=== PATIENT | male | born 1930 | race Caucasian/White ===

== ENCOUNTER → 2018-09-23 12:00 | Outpatient (CLI) | payer MEDICARE, BC ==
[2015-12-14 10:02] VITALS: BMI 29.2
--- NOTE | ~2018-09-23 | ST ---
PATIENT:BRAYAN GARDNER JR MEDICAL RECORD: [id number] SEX: M LOCATION:[facility] ORDER #: ADMISSION DATE: 09/23/18 AGE OF PATIENT: 87 REFERRING PHYSICIAN: INTERPRETING PHYSICIAN: KEYSHAWN PEREZ MD DATE OF SERVICE: 09/23/2018 PROCEDURE: Nuclear stress test. INDICATION: Angina, coronary artery disease, shortness of breath, hyperlipidemia, it was pharmacologic. The patient was exercised on standard Lexiscan protocol with 33 mCi of sestamibi injected at peak stress, 11 mCi were used previously for rest images. FINDINGS: Gated SPECT reveals a dilated cardiomyopathy, ejection fraction 23% with decreased thickening and brightening throughout the inferior segments. SPECT imaging Cardiolite was used as myocardial perfusion agent. There was a fixed perfusion defect inferiorly compatible with previous inferior myocardial infarction. This includes the basal, mid, apical inferior segments. There is reversibility anteriorly and laterally, this includes the basal, mid, apical anterior segments, apical lateral, mid lateral, and basal lateral segments. The degree of reversibility is moderate. The amount of myocardial involved is large. OVERALL IMPRESSION: This is a markedly abnormal nuclear stress test, fixed perfusion defect inferiorly, reversible ischemia anteriorly and laterally suggestive of multivessel coronary artery disease with an ischemic cardiomyopathy. I would suggest followup with cardiac catheterization for further evaluation. TRANSINT:[id number] Voice Confirmation ID: [id number] DOCUMENT ID: [id number] KEYSHAWN PEREZ MD at 1228 CC: RICHMOND ZHAO [id number] DICTATION DATE: 09/24/18 1241 TOP STITCHER: 09/25/18 0800 DEP CLI 09/23/18 [place] [id number] [place] [address]
[~2018-09-23 12:00] MED LIST: ASPIRIN EC325 M1 PO; BAYER CHEWABLE81 MG PO; BYSTOLIC10 MG PO; CELEXA20 MG PO; CYCLOBENZAPRINE10 MG PO; DULCOLAX10 MG/SUPP RC; LASIX20 MG PO; LIPITOR20 MG PO; MARINOL2.5 MG PO; MEGACE40 MG PO; MIRALAX17 GM PO; NEXIUM20 MG PO; NIZORAL 2 % SH120 ML TOPICAL; PERIDEX480 ML MM; PLAVIX75 MG PO; PRAVACHOL20 MG PO; PRAVASTATIN SOD10 MG PO; REGLAN10 MG PO; RELAFEN500 MG PO; SYNTHROID125 MCG PO; ZYLOPRIM100 MG PO
== END | disposition home or self-care (01) ==
LOC: D.HCCARDIO 12:00
DX: I25.10 Atherosclerotic heart disease of native coronary artery without angina pectoris (principal)

== ENCOUNTER 2018-10-01 07:30 | Outpatient (CLI) | payer MEDICARE, BC ==
[~2018-10-01] VITALS: Ht 185.4 cm; Wt 90.0 kg
--- NOTE | ~2018-10-01 | OP ---
PATIENT NAME: BRAYAN GARDNER JR MEDICAL RECORD: [id number] :[birth year] LOCATION:D.CAT ADMISSION DATE: SURGEON: KEYSHAWN PEREZ MD DATE OF OPERATION: 10/01/2018 PROCEDURES: 1. PTCA stent vein graft to the left circumflex. 2. Intravascular ultrasound. 3. Left heart catheterization. 4. Selective coronary angiography. 5. Vein graft angiography. 6. SANTANA angiography. 7. Left ventriculogram. INDICATION: Angina and coronary artery disease. PROCEDURE IN DETAIL: After informed consent was obtained and after a detailed description of the risks, benefits as well as alternative therapies, the patient elected to proceed with angiogram and angioplasty. The right femoral area was prepped and draped in normal sterile fashion. Right femoral artery was cannulated via modified Seldinger technique with placement of 6-German sheath. All catheters exchanged through this sheath. FINDINGS: The left ventriculogram was performed in standard 30-degree MEDRANO view, reveals global hypokinesis, ejection fraction is 20%. SELECTIVE CORONARY ANGIOGRAPHY: 1. Left main is closed. 2. Right coronary artery is closed in the mid vessel. 3. SANTANA to the LAD is patent. Distal LAD is patent. 4. Vein graft to the circumflex in a skipped fashion to OM1 and OM2 is patent; however, intravascular ultrasound reveals 70+ percent stenosis proximally. 5. Vein graft to the right coronary artery is patent; however, there is greater than 70% stenosis proximally in this graft as well. PTCA STENT OF THE VEIN GRAFT TO LEFT CIRCUMFLEX: The stent used was a 4.0 x 15 mm Integrity. Result was 0% residual stenosis. OVERALL IMPRESSION: Successful percutaneous transluminal coronary angioplasty stent of the vein graft to the left circumflex going from 70% initial stenosis to 0% residual. PLAN: PTCA stent of the vein graft to the RCA in the near future. TRANSINT:[id number] Voice Confirmation ID: [id number] DOCUMENT ID: [id number] KEYSHAWN PEREZ MD at 1456 CC: [id number] DICTATION DATE: 10/01/18 0943 EDGER MACHINE SETTER: 10/01/18 1153 DEP CLI 10/01/18 [place] [address]
--- NOTE | ~2018-10-01 | HEMODYNAMI ---
PATIENT:BRAYAN GARDNER JR MEDICAL RECORD: [id number] : [birth year] LOCATION:ABILIO ADMISSION DATE: 10/01/18 Generatedon:10/01/20189:45 Patient name: BRAYAN GARDNER Patient #: [id number] SSN: : [id number] Date of study: 10/01/2018 Page: Of Hemodynamic Procedure Report Patient Data Patient Demographics Procedure consent was obtained First Name: BRAYAN Gender: Male Last Name: KENDRA Suffix: [facility] Initial: Enmanuel : 1930 Patient #: [id number] Age: 87 year(s) Race: Unknown Additional ID: [id number] Contact details Address: [address] [address] State: [place] City: [place] Zip code: [address] Admission Admission Data Admission Date: 10/01/2018 Admission Time: 7:30 Weight (lbs.): 198.42 Weight (kg.): 90 Lab Results Lab Result Date: 10/01/2018 Lab Result Time: 0:00 Biochemistry Name Units Result Min Max BUN mg/dl 21 --(----)-* 7 18 Creatinine mg/dl 1.5 --(----)-* 0.6 1.3 CBC Name Units Result Min Max Hematocrit % 28.2 *-(----)-- 42 54 Hemoglobin g/dl 9.4 *-(----)-- 13.5 17.5 Platelets 10^3/l 141 --(*---)-- 130 400 Procedure Procedure Types Cath Procedure Diagnostic Procedure [facility] w/Coronaries w/Grafts FFR/IVUS Intra-Coronary IVUS Initial PCI Procedure AMI/SVG/EMPLOYEE ADVISER PTCA or Stent SVG-BMS/TERE Initial Procedure Description Procedure Date Procedure Date: 10/01/2018 Procedure Start Time: 9:23 Procedure End Time: 9:45 Procedure Staff Name Function Tutu Jimenez MD Performing Physician Twan Nick RN Economics Consultant Monica New RT Monitor Kulwant Khan RN Nurse Sunday Wynn RT Scrub Procedure Data Cath Procedure Fluoroscopy Diagnostic fluoroscopy Total fluoroscopy Time: 7.1 time: 7.1 min min Diagnostic fluoroscopy Total fluoroscopy dose: 386 dose: 386 mGy mGy Contrast Material Contrast Material Type Amount (ml) Isovue 300 156 Entry Location Entry Primary Successful Side Size Upsize Upsize Entry Closure Succes sful Closure Location (Fr) 1 (Fr) 2 (Fr) Remarks Device Remarks Femoral Right 5 Fr 6 Fr Exoseal artery Short Estimated blood loss: 10 ml Diagnostic catheters Device Type Used For End Catheter Placement MULTIPACK Pigtail 5 Fr Procedure catheter MULTIPACK JL 4.0 5Fr Procedure catheter MULTIPACK 3DRC 5Fr Procedure catheter DIAGNOSTIC AR2 MOD 5 Fr Procedure catheter ([id number]) Procedure Complications No complications Procedure Medications Medication Administration Route Dosage 0.9% NaCl I.V. 100 ml/hr Oxygen etCO2 Nasal cannula 2 l/min Heparin Flush Bag added to field 2 bags (1000units/500ml NS) Lidocaine 2% added to field 20 Versed I.V. 1 mg Fentanyl I.V. 50 mcg Versed I.V. 1 mg Fentanyl I.V. 50 mcg Heparin Bolus I.V. 4000 units Hemodynamics Rest HGB: 9.4 (g/dl) Heart Rate: 82 (bpm) Snapshots Pre Cath Intra NCS Post Cath Vital Signs Time Heart Resp SPO2 etCO2 NIBP (mmHg) Rhythm Pain Sedation Rate (ipm) (%) (mmHg) Status Level (bpm) 9:07:14 95 25 97 0 145/87(119) NSR 0 (11) 10(A) , No pain 9:11:24 81 21 100 25.4 136/87(119) NSR 0 (11) 10(A) , No pain 9:15:38 82 11 96 0 133/81(117) NSR 0 (11) 10(A) , No pain 9:19:50 83 14 96 26.1 127/84(112) NSR 0 (11) 10(A) , No pain 9:24:02 80 14 97 23.1 129/78(114) NSR 0 (11) 10(A) , No pain 9:28:14 81 12 97 11.2 123/80(111) NSR 0 (11) 10(A) , No pain 9:32:24 83 13 98 11.9 130/78(118) NSR 0 (11) 9(A) , No pain 9:36:36 85 14 93 11.2 124/81(106) NSR 0 (11) 9(A) , No pain 9:40:44 86 15 97 23.2 126/83(104) NSR 0 (11) 10(A) , No pain 9:44:54 85 11 97 24.7 133/79(114) NSR 0 (11) 10(A) , No pain Medications Time Medication Route Dose Verified Delivered Reason Notes Effectiveness by by 9:10:26 0.9% NaCl I.V. 100 Kulwant Kulwant Per physician ml/hr Bill Khan RN RN 9:10:37 Oxygen etCO2 2 Kulwant Kulwant Per physician Nasal l/min Bill Khan cannula RN RN 9:10:47 Heparin Flush added 2 Kulwant Kulwant used for Bag to bags Bill Khan procedure (1000units/500ml RN RN NS) 9:10:57 Lidocaine 2% added 20ml Kulwant Kulwant for local to vial Bill Khan anesthetic RN RN 9:20:31 Versed I.V. 1 mg Kulwant Kulwant for sedation Bill Khan RN RN 9:20:39 Fentanyl I.V. 50 Kulwant Kulwant for sedation mcg Bill Khan RN RN 9:25:07 Versed I.V. 1 mg Kulwant Kulwant for sedation Bill Khan RN RN 9:25:13 Fentanyl I.V. 50 Kulwant Kulwant for sedation mcg Bill Khan RN RN 9:34:07 Heparin Bolus I.V. 4000 Kulwant Kulwant for units Bill Khan anticoagulation RN data control clerk Log Time Note 8:45:21 Twan Nick RN sent for patient. Start room use. 8:58:22 Time tracking: Regular hours (M-F 7:00 - 5:00) 8:58:26 Plan of Care:Hemodynamics will remain stable., Cardiac rhythm will remain stable., Comfort level will be maintained., Respiratory function will remain adequate., Patient/ family verbilizes understanding of procedure., Procedure tolerated without complication., Recovers from procedure without complications.. 9:01:19 Patient received from Pre/Post Procedure Room to [facility] 3 Alert and oriented. Tansferred to table in Supine position. 9:01:21 Warm blankets applied, and horace hugger turned on for patient comfort. 9::21 Correct patient and procedure confirmed by team. 9::23 Signed procedure consent form obtained from patient. 9::24 ECG and BP/O2 sat monitors applied to patient. 9:01:24 Full Disclosure recording started 9:06:06 Vital chart was started 9:08:39 Baseline sample Acquired. 9:08:44 Rhythm: sinus rhythm 9:09:04 H&P Date Dictated: 09/11/2018 Within 30 days and on chart., H&P Addendum completed by physician on day of procedure. (MUST COMPLETE FOR ALL OUTPATIENTS). 9:09:05 Pre-procedure instructions explained to patient. 9:09:05 Pre-op teaching completed and patient verbalized understanding. 9:09:07 Family in patients room. 9:09:09 Patient NPO since Midnight. 9:09:10 Is the patient allergic to Iodine/contrast media? No. 9:09:11 Is patient on blood thinner?Yes 9:09:14 ACC The patient was administered the following blood thiners within the last 24 hours: ACCPlavix 9:09:16 Patient diabetic? No. 9:09:19 Previous problem with sedation/anesthesia? No ? 9:09:20 Snore? Yes 9:09:21 Sleep apnea? No 9:09:22 Deviated septum? No 9:09:22 Opens mouth fully? Yes 9:09:23 Sticks out tongue? Yes 9:09:25 Airway obstruction? No ? 9:09:26 Dentures? No ? 9:09:33 Pre procedure: right dorsailis pedis pulse 1+ Palpable, but thready & weak; easily obliterated 9:09:37 Patient pain scale 0/10 ?. 9:09:44 IV patent on arrival in left forearm with 0.9% NaCl at KVO. 9:09:46 Lab results completed and on chart. 9:09:49 Right groin area was prepped with chlora-prep and draped in sterile fashion 9:09:49 Alarms reviewed by R. N. 9:09:50 Sharps counted by scrub and verified by R.N. 9:09:52 Use device set Femoral Dx 9:09:54 Tegaderm 4 x 4 (1626W) opened to sterile field. 9:09:54 ACIST Manifold (37636) opened to sterile field. 9:09:55 ACIST Hand Control (50780) opened to sterile field. 9:09:56 ACIST Syringe (86811) opened to sterile field. 9:09:57 Bag Decanter (2002S) opened to sterile field. 9:09:57 Medline Cath Pack ([id number]) opened to sterile field. 9:09:59 SHEATH 5FR [place] (RIJ503) opened to sterile field. 9:09:59 DIAGNOSTIC Multipack 5Fr catheter set (VH3183) opened to sterile field. 9:10:01 DIAGNOSTIC WIRE .035 260cm J wire (347569) opened to sterile field. 9:10:26 0.9% NaCl 100 ml/hr I.V. was administered by Kulwant Khan RN; Per physician; 9:10:37 Oxygen 2 l/min etCO2 Nasal cannula was administered by Kulwant Khan RN; Per physician; 9:10:47 Heparin Flush Bag (1000units/500ml NS) 2 bags added to field was administered by Kulwant Khan RN; used for procedure; 9:10:57 Lidocaine 2% 20ml vial added to field was administered by Kulwant Khan RN; for local anesthetic; 9:17:17 Patient Weight : 198.42 lbs 9:18:05 Lab Result : Hemoglobin 9.4 g/dl 9:18:05 Lab Result : Creatinine 1.5 mg/dl 9:18:05 Lab Result : BUN 21 mg/dl 9:18:05 Lab Result : Hematocrit 28.2 % 9:18:05 Lab Result : Platelets 141 10^3/l 9:20:06 --------ALL STOP TIME OUT------ 9:20:07 Final Timeout: patient, procedure, and site verified with staff and physician. All members of the team are in agreement. 9:20:08 Right groin site verified by team. 9:20:11 Physical assessment completed. ASA score P 2 - A patient with mild systemic disease as per Tutu Jimenez MD. 9:20:14 Sedation plan: IV Moderate Sedation Medication:Versed, Fentanyl 9:20:25 Zero performed for pressure channel P1 9:20:31 Versed 1 mg I.V. was administered by Kulwant Khan RN; for sedation; 9::39 Fentanyl 50 mcg I.V. was administered by Kulwant Khan RN; for sedation; 9::18 Procedure started. 9:23:21 Local anesthetic to right femoral artery with Lidocaine 2% by Tutu Jimenez MD.INITIAL ACCESS ONLY 9:24:19 A 5 Fr sheath was inserted into the Right Femoral artery 9:24:25 A MULTIPACK Pigtail 5 Fr catheter was advanced over the wire and used for Procedure. 9:24:49 LV angiography performed. 9:24:50 LV gram done using MEDRANO 9:24:58 EF : 20 % 9:25:02 Injector settings: Ml/sec: 10, Volume: 20, 9:25:04 Catheter removed. 9:25:07 Versed 1 mg I.V. was administered by Kulwant Khan RN; for sedation; 9::08 A MULTIPACK JL 4.0 5Fr catheter was advanced over the wire and used for Procedure. 9:25:13 Fentanyl 50 mcg I.V. was administered by Kulwant Khan RN; for sedation; 9::58 LCA closed. 9:26:01 Catheter removed. 9:26:07 A MULTIPACK 3DRC 5Fr catheter was advanced over the wire and used for Procedure. 9:26:56 SANTANA to LAD angiography performed. 9:27:42 RCA angiography performed. 9:27:52 Catheter removed. 9:27:58 A DIAGNOSTIC AR2 MOD 5 Fr catheter ([id number]) was advanced over the wire and used for Procedure. 9:29:20 SVG to OM angiography performed. 9:29:42 Skip graft to OM 2. 9:29:46 Use device set TAU PCI 9:29:47 SHEATH 6FR [place] (KCR188) opened to sterile field. 9:29:51 CHOICE PT Extra Support 182cm wire ([id number]) opened to sterile field. 9:29:55 INFLATOR Merit BasixCompak (AO8829) opened to sterile field. 9:31:13 SVG to RCA angiography performed. 9:32:55 Catheter removed. 9:33:05 GUIDE 6FR AR 2.0 catheter ([id number]) opened to sterile field. 9:33:14 Dearing [place] IVUS Catheter (56962M) opened to sterile field. 9:33:33 Sheath upsized to a 6 Fr Short. 9:33:52 6 Fr AR 2 guide catheter was inserted over the wire 9:33:57 CPTXS wire advanced. 9:34:07 Heparin Bolus 4000 units I.V. was administered by Kulwant Khan RN; for anticoagulation; 9:34:17 Wire advanced across lesion. 9:34:24 IVUS catheter advanced over wire. 9:35:09 IVUS pass to SVG Circ lesion performed. 9:37:46 IVUS catheter removed over wire. 9:38:05 Place stent Inflation Number: 1 A INTEGRITY RX 4.0 x 15 stent ([id number]) was prepped and advanced across the Aorta Left -> 1st Ob Carol. The stent was deployed at 17 MATTI for 0:10 (min:sec). 9:39:50 EXOSEAL 6Fr (EX600) opened to sterile field. 9:39:55 Stent catheter was removed intact over wire. 9:39:56 Wire removed. 9:39:56 Guide catheter removed. 9:40:09 Sheath removed intact; hemostasis achieved with Exoseal to the Right Femoral artery. 9:40:49 Procedure ended.(Physican Out) 9:43:35 Fluoroscopy time 07.10 minutes. 9:43:39 Fluoroscopy dose: 386 mGy 9:43:39 Flurop Dose total: 386 9:43:42 Contrast amount:Isovue 300 156ml. 9:43:44 Sharps counted by scrub and verified by R.N. 9:43:45 Insertion/operative site no bleeding no hematoma. 9:43:48 Post-op/insertion site Right Femoral artery dressed using a 4 x 4 and Tegaderm. 9:43:49 Post Procedure Pulses reassessed and unchanged 9:43:51 Post-procedure physical assessment completed. ASA score P 2 - A patient with mild systemic disease as per Tutu Jimenez MD. 9:43:54 Post procedure rhythm: unchanged. 9:43:57 Estimated blood loss: 10 ml 9:43:59 Post procedure instruction explained to patient.Patient verbalizes understanding. 9:43:59 Patient needs reinforcement of post procedure teaching. 9:44:11 Procedure type changed to Cath procedure, Diagnostic procedure, LHC, LHC w/Coronaries w/Grafts, FFR/IVUS, Intra-Coronary IVUS Initial, PCI procedure, AMI/SVG/EMPLOYEE ADVISER PTCA or Stent, SVG-BMS/TERE Initial 9:44:12 Procedure and supply charges have been captured, reviewed, submitted and are correct. 9:44:15 Procedure Complication : No complications 9:45:03 Vital chart was stopped 9:45:04 See physician's report for complete and final results. 9:45:05 Report given to Pre/Post Procedure Room. 9:45:07 Patient transfered to Pre/Post Procedure Room with Stretcher. 9:45:08 Procedure ended. 9:45:08 Full Disclosure recording stopped 9:45:13 End room use (Document Last) Intervention Summary Intervention Notes Time ActionType Lesion and Equipment Action# Pressure Duration Attributes Used 9:38:05 Place stent Aorta Left INTEGRITY RX 1 17 00:10 -> 1st Ob 4.0 x 15 Carol stent ([id number]) Device Usage Item Name Manufacture Quantity Catalog Number Hospital Part Current Mini mal Lot# / Charge Number Stock Stock Serial# Code Tegaderm 4 x 3M 1 1626W 163332 771528 [id number] 5 4 (1626W) ACIST Acist 1 84878 662947 349415 327477 5 Manifold Medical (83893) Systems Inc ACIST Hand Acist 1 51947 276586 706204 211697 5 Control Medical (11497) Systems Inc ACIST Acist 1 39524 383567 335439 202361 20 Syringe Medical (85193) Systems Inc Bag Decanter Microtek 1 2002S 160355 50023 032053 5 (2001S) Medical Inc. Medline Cath Medline 1 [id number] 630730 67070 508738 5 Pack ([id number]) SHEATH 5FR Terumo 1 GHF420 634305 514298 083561 5 [place] (YHJ345) DIAGNOSTIC Cardinal 1 KX9088 563909 88386 204852 30 Multipack Health 5Fr catheter set (ZH7598) DIAGNOSTIC St Cristian 1 787482 174618 769811 001827 30 WIRE .035 260cm J wire (126122) MULTIPACK Cardinal 1 582957 5 Pigtail 5 Fr Health catheter MULTIPACK JL Cardinal 1 315463 5 4.0 5Fr Health catheter MULTIPACK Cardinal 1 319579 5 3DRC 5Fr Health catheter DIAGNOSTIC Cardinal 1 [id number] 929617 399533 221941 20 AR2 MOD 5 Fr Health catheter (840067V) SHEATH 6FR Terumo 1 QCE147 879634 054607 294062 40 [place] (ETZ367) CHOICE PT [place] 1 [id number] 706659 987995 871114 5 Extra Scientific Support 182cm wire ([id number]) INFLATOR Merit 1 KV1860 854172 989928 423262 15 [place] Medical BasixCompak (NR4252) GUIDE 6FR AR Medtronic 1 [id number] 519483 31758 710427 1 2.0 catheter (QM4CP69) Dearing Dearing 1 20835X 413773 869905 803083 8 [place] IVUS Catheter (50537Y) INTEGRITY RX Medtronic 1 [id number] 403553 251913 500971 5 [id number] 4.0 x 15 stent ([id number]) EXOSEAL 6Fr Cardinal 1 EX600 713087 035092 011863 10 (EX600) Health Signature Audit [place] Stage Time Signature Unsigned Intra-Procedure 10/01/2018 Wynn 9:45:25 AM RT(R) Signatures Monitor : Monica New Signature : RT Date : Time : [address] [place] [address]
[2018-10-01 08:01] VITALS: BP 127/68; Ht 185.4 cm; Wt 90.0 kg
[2018-10-01 08:11] LABS: BASOPHILS 0.5 % (0-2); EOSINOPHILS 2.7 % (0-7); HEMATOCRIT 28.2 % (42.0-54.0); HEMOGLOBIN 9.4 g/dL (13.5-17.5); LYMPHOCYTES 40.1 % (15-50); MCH 36.9 pg (26.0-34.0); MCHC 33.3 g/dL (31.0-37.0); MCV 110.6 fL (80.0-100.0); MEAN PLATELET VOLUME 10.1 fL (7.4-10.4); MONOCYTES 2.3 % (2-11); NEUTROPHILS 54.4 % (40-80); RBC 2.55 10x6/uL (4.20-6.10); RDW 14.2 % (11.5-14.5); WBC 2.2 10x3/uL (4.8-10.8)
[2018-10-01] MEDS ORDERED: ZYLOPRIM100 MG PO (08:11)
[2018-10-01] MEDS ORDERED: REGLAN10 MG PO (08:12)
[2018-10-01] MEDS ORDERED: NEXIUM20 MG PO (08:14)
[2018-10-01 08:17] LABS: PLATELET COUNT 141 10x3/uL (130-400)
[2018-10-01 08:24] LABS: ANION GAP 15.3 mmol/L (8-16); CALCIUM 8.9 mg/dL (8.5-10.1); CARBON DIOXIDE 23.9 mmol/L (21.0-32.0); CREATININE - SERUM 1.5 mg/dL (0.6-1.3); POTASSIUM - SERUM 4.2 mmol/L (3.5-5.1)
[2018-10-01] MEDS ORDERED: BAYER CHEWABLE81 MG PO (09:51)
== END 2018-10-01 13:50 | disposition home or self-care (01) ==
LOC: D.CATH 07:30
PROVIDERS: Internal Medicine Interventional Cardiology
DX: I25.119 Atherosclerotic heart disease of native coronary artery with unspecified angina pectoris (principal); I25.719 Atherosclerosis of autologous vein coronary artery bypass graft(s) with unspecified angina pectoris; Z01.812 Encounter for preprocedural laboratory examination

== ENCOUNTER 2018-10-08 07:29 | Outpatient (CLI) | payer MEDICARE, BC ==
[~2018-10-08] VITALS: Ht 185.4 cm; Wt 90.0 kg
--- NOTE | ~2018-10-08 | HEMODYNAMI ---
PATIENT:BRAYAN GARDNER JR MEDICAL RECORD: [id number] : [birth year] LOCATION:DRE ADMISSION DATE: 10/08/18 Generatedon:10/08/201810:16 Patient name: BRAYAN GARDNER Patient #: [id number] SSN: : 1930 Date of study: 10/08/2018 Page: Of Hemodynamic Procedure Report Patient Data Patient Demographics Procedure consent was obtained First Name: BRAYAN Gender: Male Last Name: KENDRA Suffix: [facility] Initial: Enmanuel : 1930 Patient #: [id number] Age: 87 year(s) Race: Unknown Additional ID: [id number] Contact details Address: [facility] [address] State: [place] City: [place] Zip code: [address] Past Medical History Allergies Allergen Reaction Date Comments Reported Other allergy 10/08/2018 Statins, Admission Admission Data Admission Date: 10/08/2018 Admission Time: 7:29 Admit Source: Other Lab Results Lab Result Date: 10/08/2018 Lab Result Time: 0:00 Biochemistry Name Units Result Min Max BUN mg/dl 22 --(----)-* 7 18 Creatinine mg/dl 1.5 --(----)-* 0.6 1.3 CBC Name Units Result Min Max Hemoglobin g/dl 9.3 *-(----)-- 13.5 17.5 Procedure Procedure Types Cath Procedure PCI Procedure AMI/SVG/BREAD ROOM HAND PTCA or Stent SVG-BMS/TERE Initial Procedure Description Procedure Date Procedure Date: 10/08/2018 Procedure Start Time: 10:01 Procedure End Time: 10:13 Procedure Staff Name Function Tutu Jimenez MD Performing Physician Familia Marie RT Monitor David Bourne RT Scrub Luz Maria Francis RN Nurse Procedure Data Cath Procedure Fluoroscopy Diagnostic fluoroscopy Total fluoroscopy Time: 3.6 time: 3.6 min min Diagnostic fluoroscopy Total fluoroscopy dose: 163 dose: 163 mGy mGy Contrast Material Contrast Material Type Amount (ml) Isovue 300 53 Entry Location Entry Primary Successful Side Size Upsize 1 Upsize Entry Closure Ivory ccessful Closure Location (Fr) (Fr) 2 (Fr) Remarks Device Remarks Femoral Right 6 Fr 6 Fr 6 Fr Exoseal artery Short Mid-Length Short Estimated blood loss: 10 ml Procedure Complications No complications Procedure Medications Medication Administration Route Dosage 0.9% NaCl I.V. 100 ml/hr Oxygen etCO2 Nasal cannula 2 l/min Lidocaine 2% added to field 20 Heparin Flush Bag added to field 2 bags (1000units/500ml NS) Versed I.V. 2 mg Fentanyl I.V. 50 mcg Heparin Bolus I.V. 4000 units Fentanyl I.V. 50 mcg Versed I.V. 1 mg Hemodynamics Rest Heart Rate: 84 (bpm) Snapshots Pre Cath Intra NCS Post Cath Vital Signs Time Heart Resp SPO2 etCO2 NIBP (mmHg) Rhythm Pain Sedation Rate (ipm) (%) (mmHg) Status Level (bpm) 9:45:23 83 18 100 25.6 136/88(125) NSR 0 (11) 10(A) , No pain 9:49:41 83 16 98 20.6 137/77(119) NSR 0 (11) 10(A) , No pain 9:53:55 86 12 97 21.1 133/85(108) NSR 0 (11) 10(A) , No pain 9:58:13 82 14 98 21 132/77(106) NSR 0 (11) 9(A) , No pain 10:02:29 85 21 99 23.7 134/83(111) NSR 0 (11) 10(A) , No pain 10:06:45 81 15 99 18 137/77(112) NSR 0 (11) 9(A) , No pain 10:10:57 84 24 98 13.5 136/83(113) NSR 0 (11) 10(A) , No pain Medications Time Medication Route Dose Verified Delivered Reason Notes Effectiveness by by 9:42:45 0.9% NaCl I.V. 100 Tutu Buchanana used for ml/hr Tony Francis technical support specialist 9:42:52 Oxygen etCO2 2 Tutu Buchanana used for Nasal l/min Tony Francis procedure cannula RN 9:42:58 Lidocaine 2% added 20ml Tutu Cam for local to vial Tony Jimenez MD anesthetic field 9:43:05 Heparin Flush added 2 Tutu Tutu used for Bag to bags Tony Jimenez MD procedure (1000units/500ml field NS) 9:57:30 Versed I.V. 2 mg Tutu Luz Maria for sedation Tony Francis RN 9:57:51 Fentanyl I.V. 50 Tutu Luz Maria for sedation mcg Tony Francis RN 10:00:16 Heparin Bolus I.V. 4000 Tutu Luz Maria for verif ied units Tony Francis anticoagulation with Dr. LUKE Jimenez 10:03:21 Fentanyl I.V. 50 Tutu Luz Maria for sedation mcg Tony Francis RN 10:03:25 Versed I.V. 1 mg Tutu Luz Maria for sedation Tony Francis RN Procedure Log Time Note 9:30:48 Informed consent obtained and on chart 9:30:51 Admit Source: Other 9:32:34 Diagnostic Cath status Elective 9:32:37 David Suit RT(R) sent for patient. Start room use. 9:32:38 Time tracking: Regular hours (M-F 7:00 - 5:00) 9:32:41 Plan of Care:Hemodynamics will remain stable., Cardiac rhythm will remain stable., Comfort level will be maintained., Respiratory function will remain adequate., Patient/ family verbilizes understanding of procedure., Procedure tolerated without complication., Recovers from procedure without complications.. 9:32:50 H&P Date Dictated: 10/08/2018 Within 30 days and on chart., H&P Addendum completed by physician on day of procedure. (MUST COMPLETE FOR ALL OUTPATIENTS). 9:36:49 Patient received from Pre/Post Procedure Room to CCL 1 Alert and oriented. Tansferred to table in Supine position. 9:36:50 Warm blankets applied, and horace hugger turned on for patient comfort. 9:36:51 Correct patient and procedure confirmed by team. 9:36:51 ECG and BP/O2 sat monitors applied to patient. 9:36:53 Pre-procedure instructions explained to patient. 9:36:53 Pre-op teaching completed and patient verbalized understanding. 9:36:54 Family in waiting room. 9:36:56 Patient NPO since Midnight. 9:37:09 Patient allergic to Other allergyStatins, 9:37:11 Is the patient allergic to Iodine/contrast media? No. 9:42:36 Vital chart was started 9:42:45 0.9% NaCl 100 ml/hr I.V. was administered by Luz Maria Francis RN; used for procedure; 9:42:52 Oxygen 2 l/min etCO2 Nasal cannula was administered by Luz Maria Francis RN; used for procedure; 9:42:58 Lidocaine 2% 20ml vial added to field was administered by Tutu Jimenez MD; for local anesthetic; 9:43:05 Heparin Flush Bag (1000units/500ml NS) 2 bags added to field was administered by Tutu Jimenez MD; used for procedure; 9:43:27 Lab Result : BUN 22 mg/dl 9:43:27 Lab Result : Creatinine 1.5 mg/dl 9:43:27 Lab Result : Hemoglobin 9.3 g/dl 9:43:32 Lab results completed and on chart. 9:44:25 Is patient on blood thinner?Yes 9:44:30 ACC The patient was administered the following blood thiners within the last 24 hours: ACCPlavix 9:44:31 Patient diabetic? No. 9:44:36 Previous problem with sedation/anesthesia? No ? 9:44:38 Snore? Yes 9:44:40 Sleep apnea? No 9:44:41 Deviated septum? No 9:44:42 Opens mouth fully? Yes 9:44:45 Sticks out tongue? Yes 9:44:47 Airway obstruction? No ? 9:44:49 Dentures? No ? 9:45:25 Pre procedure: right dorsailis pedis pulse 1+ Palpable, but thready & weak; easily obliterated 9:45:29 Patient pain scale 0/10 ?. 9:45:37 IV patent on arrival in left forearm with 0.9% NaCl at [facility]. 9:45:41 Right groin area was prepped with chlora-prep and draped in sterile fashion 9:45:42 Alarms reviewed by R. N. 9:45:43 Sharps counted by scrub and verified by R.N. 9:45:47 Use device set Femoral Dx 9:45:49 ACIST Syringe (03767) opened to sterile field. 9:45:50 Bag Decanter (2002S) opened to sterile field. 9:45:51 ACIST Hand Control (24124) opened to sterile field. 9:45:51 ACIST Manifold (87454) opened to sterile field. 9:45:53 Tegaderm 4 x 4 (1626W) opened to sterile field. 9:45:57 Medline Cath Pack ([id number]) opened to sterile field. 9:45:57 DIAGNOSTIC WIRE .035 260cm J wire (479326) opened to sterile field. 9:46:10 SHEATH 6FR [place] (FLL528) opened to sterile field. 9:46:14 CHOICE PT Extra Support 182cm wire ([id number]) opened to sterile field. 9:46:18 INFLATOR Merit BasixCompak (ZS5636) opened to sterile field. 9:55:22 Physician arrived 9:55:23 Final Timeout: patient, procedure, and site verified with staff and physician. All members of the team are in agreement. 9:55:26 Right groin site verified by team. 9:55:28 Physical assessment completed. ASA score P 2 - A patient with mild systemic disease as per Tutu Jimenez MD. 9:55:30 Sedation plan: IV Moderate Sedation Medication:Versed, Fentanyl 9:57:30 Versed 2 mg I.V. was administered by Luz Maria Francis RN; for sedation; 9:57:51 Fentanyl 50 mcg I.V. was administered by Luz Maria Francis RN; for sedation; 10:00:16 Heparin Bolus 4000 units I.V. was administered by Luz Maria Francis RN; for anticoagulation; verified with Dr. Jimenez 10:01:00 Procedure started. 10:01:00 Full Disclosure recording started 10:01:02 Local anesthetic to right femoral artery with Lidocaine 2% by Tutu Jimenez MD.INITIAL ACCESS ONLY 10:01:09 A 6 Fr Short sheath was inserted into the Right Femoral artery 10:01:55 Baseline sample Acquired. 10:02:01 Rhythm: sinus rhythm 10:03:08 Zero performed for pressure channel P1 10:03:11 Zero performed for pressure channel P1 10:03:21 Fentanyl 50 mcg I.V. was administered by Luz Maria Francis RN; for sedation; 10:03:25 Versed 1 mg I.V. was administered by Luz Maria Francis RN; for sedation; 10:03:26 GUIDE 6FR MB 1 SH catheter ([id number]) opened to sterile field. 10:03:35 6 Fr MB1 SH guide catheter was inserted over the wire 10:03:48 CHOICE PT ES wire advanced. 10:06:24 TIP WIRE BROKE OFF THROUGH SIDE HOLE OF GUIDE CATHETER. 10:06:25 Wire removed. damaged. 10:06:40 SHEATH 6FR ARROW 45cm (CL-67782) opened to sterile field. 10:06:43 CHOICE PT Extra Support 182cm wire ([id number]) opened to sterile field. 10:06:55 Guide catheter removed. 10:07:00 Sheath upsized to a 6 Fr Mid-Length. 10:07:57 6 Fr MB 1 SH guide catheter was inserted over the wire 10:08:04 CHOICE PT ES wire advanced. 10:08:07 Wire advanced across lesion. 10:09:39 Place stent Inflation Number: 1 A JOVANNA RX 3.5 x 38 stent ([id number]) was prepped and advanced across the Aorta Right -> Dist RCA. The stent was deployed at 21 MATTI for 0:10 (min:sec). 10:10:32 Stent catheter was removed intact over wire. 10:10:33 Wire removed. 10:10:33 Guide catheter removed. 10:10:40 EXOSEAL 6Fr (EX600) opened to sterile field. 10:11:18 Sheath upsized to a 6 Fr Short. 10:11:24 Sheath removed intact; hemostasis achieved with Exoseal to the Right Femoral artery. 10:11:28 Procedure ended.(Physican Out) 10:12:15 Fluoroscopy time 03.60 minutes. 10:12:19 Flurop Dose total: 163 10:12:19 Fluoroscopy dose: 163 mGy 10:12:23 Contrast amount:Isovue 300 53ml. 10:12:25 Sharps counted by scrub and verified by R.N. 10:12:25 Insertion/operative site no bleeding no hematoma. 10:12:28 Post-op/insertion site Right Femoral artery dressed using a 4 x 4 and Tegaderm. 10:12:32 Post right femoral artery:stable, soft, clean and dry 10:12:33 Post Procedure Pulses reassessed and unchanged 10:12:35 Post-procedure physical assessment completed. ASA score P 2 - A patient with mild systemic disease as per Tutu Jimenez MD. 10:12:37 Post procedure rhythm: unchanged. 10:12:39 Estimated blood loss: 10 ml 10:12:40 Post procedure instruction explained to patient.Patient verbalizes understanding. 10:12:41 Patient needs reinforcement of post procedure teaching. 10:13:00 Procedure and supply charges have been captured, reviewed, submitted and are correct. 10:13:02 Procedure Complication : No complications 10:13:04 Vital chart was stopped 10:13:04 See physician's report for complete and final results. 10:13:05 Report given to Pre/Post Procedure Room. 10:13:08 Patient transfered to Pre/Post Procedure Room with Stretcher. 10:13:10 Procedure ended. 10:13:10 Full Disclosure recording stopped 10:13:13 End room use (Document Last) Intervention Summary Intervention Notes Time ActionType Lesion and Equipment Used Action# Pressure Duration Attributes 10:09:39 Place stent Aorta Right JOVANNA RX 3.5 x 1 21 00:10 -> Dist RCA 38 stent ([id number]) Device Usage Item Name Manufacture Quantity Catalog Number Hospital Part Current M inimal Lot# / Charge Number Stock Stock Serial# Code ACIST Syringe Acist 1 21055 613154 191638 059761 2 0 (46854) Medical Systems Inc Bag Decanter Microtek 1 2001S 900248 74888 954808 5 (2001S) Medical Inc. ACIST Hand Acist 1 40459 899813 916351 482470 5 Control Medical (12002) Systems Inc ACIST Manifold Acist 1 93258 914011 252484 116513 5 (21106) Medical Systems Inc Tegaderm 4 x 4 3M 1 1626W 599949 523885 782202 5 (1626W) Medline Cath Medline 1 [id number] 581963 70922 488773 5 Pack ([id number]) DIAGNOSTIC [place] 1 549255 184229 512003 263242 3 0 WIRE .035 260cm J wire (958683) SHEATH 6FR Terumo 1 ALM244 514677 159057 582216 4 0 [place] (FMY123) CHOICE PT [place] 2 [id number] 422011 137585 687438 5 Extra Support Scientific 182cm wire ([id number]) INFLATOR Merit Merit 1 DL5081 221803 122900 780458 1 5 [facility] (GX9147) GUIDE 6FR MB 1 Medtronic 1 [id number] 702165 54791 962172 1 SH catheter ([id number]) SHEATH 6FR Teleflex 1 CL-48074 737856 661890 024023 5 ARROW 45cm (CL-92790) JOVANNA RX 3.5 x Medtronic 1 [id number] 894806 0900747 143726 5 [id number] 38 stent ([id number]) EXOSEAL 6Fr Cardinal 1 EX600 612779 696943 312999 1 0 (EX600) Health Signature Audit [place] Stage Time Signature Unsigned Intra-Procedure 10/08/2018 Familia Marie 10:16:05 AM RT(R) Signatures Monitor : Familia Marie RT Signature : Date : Time : [id number] [place] [address]
[2018-10-08 07:50] VITALS: BP 104/68; Ht 185.4 cm; Wt 90.0 kg
[2018-10-08 08:02] LABS: HEMOGLOBIN 9.3 g/dL (13.5-17.5); MCH 36.8 pg (26.0-34.0); MCHC 33.2 g/dL (31.0-37.0); MCV 110.7 fL (80.0-100.0); MEAN PLATELET VOLUME 9.6 fL (7.4-10.4); PLATELET COUNT 133 10x3/uL (130-400); RBC 2.53 10x6/uL (4.20-6.10); RDW 13.8 % (11.5-14.5); WBC 2.4 10x3/uL (4.8-10.8)
[2018-10-08 08:21] LABS: ANION GAP 14.9 mmol/L (8-16); CALCIUM 8.6 mg/dL (8.5-10.1); CARBON DIOXIDE 23.2 mmol/L (21.0-32.0); CREATININE - SERUM 1.5 mg/dL (0.6-1.3); POTASSIUM - SERUM 4.1 mmol/L (3.5-5.1)
[2018-10-08 08:30] LABS: EOSINOPHILS 2 % (0-7); LYMPHOCYTES 48 % (15-50); MONOCYTES 4 % (2-11); NEUTROPHILS 45 % (40-80); PLATELET ESTIMATE NORMAL
--- NOTE | 2018-10-08 10:45 | NUR ---
PATIENT RESTING, VSS ON 1L NASAL CANNULA. RIGHT GROIN DRESSING IS CDI, NO BLEEDING OR HEMATOMA NOTED. 2+ PEDAL PULSES. NO C/O PAIN,NUMBNESS, OR TINGLING.
--- NOTE | 2018-10-08 11:15 | NUR ---
PATIENT RESTING. VSS ON 1L NASAL CANNULA. RIGHT GROIN DRESSING IS CDI, NO BLEEDING OR HEMATOMA NOTED.
--- NOTE | 2018-10-08 11:30 | NUR ---
PATIENT RESTING, VSS ON 1L NASAL CANNULA. RIGHT GROIN DRESSING IS CDI, NO BLEEDING OR HEMATOMA NOTED.
--- NOTE | 2018-10-08 12:00 | NUR ---
PATIENT AWAKE, SIPPING WATER. RIGHT GROIN DRESSING IS CDI, NO BLEEDING OR HEMATOMA NOTED. VSS ON ROOM AIR. 2+ PEDAL PULSES. NO N/V.
--- NOTE | 2018-10-08 12:30 | NUR ---
ASSISTED PATIENT WITH URINAL. VSS ON ROOM AIR. RIGHT GROIN DRESSING IS CDI,NO BLEEDING OR HEMATOMA NOTED.
--- NOTE | 2018-10-08 13:00 | NUR ---
PATIENT AWAKE, VSS ON ROOM AIR. RIGHT GROIN DRESSING IS CDI, NO BLEEDING OR HEMATOMA NOTED.
--- NOTE | 2018-10-08 13:10 | NUR ---
PATIENT RESTING, VSS ON ROOM AIR. RIGHT TR BAND IN PLACE, NO BLEEDING OR HEMATOMA NOTED.
--- NOTE | 2018-10-08 13:30 | NUR ---
PATIENT EATING TURKEY SANDWICH AND GRAPES, HEAD OF BED ELEVATED TO 30 DEGRESS. RIGHT GROIN DRESSING IS CDI, NO BLEEDING OR HEMATOMA NOTED.
--- NOTE | 2018-10-08 14:00 | NUR ---
IV REMOVED AT THIS TIME. VSS ON ROOM AIR. RIGHT GROIN DRESSING IS CDI, NO BLEEDING OR HEMATOMA NOTED. EDUCATION REGARDING DISCHARGE AND MEDICATION GIVEN TO PATIENT AND FAMILY MEMBER AT THIS TIME, ALL QUESTIONS ANSWERED.
--- NOTE | 2018-10-08 14:10 | NUR ---
PATIENT TRANSPORTED VIA WHEELCHAIR TO CAR WITH DAUGHTER DRIVING. ALL BELONGINGS SENT WITH PATIENT.
--- NOTE | 2018-10-09 14:57 | HP ---
PATIENT: BRAYAN GARDNER JR MEDICAL RECORD: [id number] ACCOUNT: [id number] LOCATION:ABILIO : [birth year] ADMISSION DATE: 10/08/18 PCP: RICHMOND ZHAO MD HISTORY AND PHYSICAL EXAMINATION ADMITTING DIAGNOSES: 1. Angina. 2. Coronary artery disease. 3. Recent percutaneous transluminal coronary angioplasty stent vein graft to the circumflex with concomitant disease vein graft to right coronary artery. 4. Hypertension. 5. Hyperlipidemia. HISTORY OF PRESENT ILLNESS: Mr. Gardner presents with unstable anginal symptomatology, found to have 2-vessel disease of the vein graft to the circumflex and vein graft to the right, underwent successful PTCA stent of the vein graft to circumflex, is now brought back for PTCA stent of the vein graft to the RCA. PHYSICAL EXAMINATION: GENERAL APPEARANCE: Well-nourished, well-developed, appears stated age. Level of distress, comfortable. PSYCHIATRIC: Mental status, alert, normal affect. Orientation, oriented to time, place and person. EYES: Lids and conjunctiva, noninjected. No discharge, no pallor. ENT: Lips, teeth, gums, normal dentition. Oropharynx, no cyanosis, no pallor. NECK: Carotid arteries, bilateral normal upstroke, no bruits, no thrills. JUGULAR VEINS: No jugular venous pressure or distention. CERVICAL LYMPH NODES: Nontender, nonenlarged. THYROID: Not enlarged. Nontender. No nodules. LUNGS: Respiratory effort, unlabored. CHEST: Normal curvature. No thoracic deformity. No chest wall tenderness. Percussion, resonant. Auscultation, clear. No wheezes, no rales, no rhonchi. CARDIOVASCULAR: Precordial exam, nondisplaced. No heaves or pericardial thrills. Rate and rhythm, regular. Heart sounds, normal S1, normal S2. No S3, no gallop, no rub. Systolic murmur, not heard. Diastolic murmur, not heard. EXTREMITIES: No cyanosis, no edema. Peripheral pulses, full and equal in all extremities, except as noted. No bruits appreciated. ABDOMEN: Soft, nondistended. Normal aorta. No bruit. Nontender. No masses. Liver, nontender, no hepatomegaly. Spleen, nontender, no splenomegaly. MUSCULOSKELETAL: No joint tenderness. No joint swelling. No erythema. NEUROLOGICAL: Normal gait, normal strength, normal tone. SKIN: Warm and dry. OVERALL IMPRESSION: Anginal symptomatology. We will proceed with transcatheter revascularization of the vein graft to the right coronary artery. TRANSINT:[id number] Voice Confirmation ID: [id number] DOCUMENT ID: [id number] HISTORY AND PHYSICAL [id number] BRAYAN GARDNER JR, JEFFREY MD at 1457 CC: [id number] DICTATION DATE: 10/08/18 1016 ODD JOB WORKER: 10/08/18 1052 DEP CLI 10/08/18 [id number] [place] [address]
--- NOTE | 2018-10-09 14:57 | OP ---
PATIENT NAME: BRAYAN GARDNER JR MEDICAL RECORD: [id number] :[birth year] LOCATION:D.CAT ADMISSION DATE: SURGEON: KEYSHAWN PEREZ MD DATE OF OPERATION: 10/08/2018 PROCEDURES: 1. PTCA stent vein graft to RCA. 2. Selective coronary angiography. INDICATION: Angina and coronary artery disease. PROCEDURE IN DETAIL: After informed consent was obtained and after a detailed description of the risks, benefits as well as alternative therapies, the patient elected to proceed with angiogram and angioplasty. The right femoral area was prepped and draped in normal sterile fashion. Right femoral artery was cannulated via modified Seldinger technique with placement of 6-Grenadian sheath. All catheters exchanged through this sheath. FINDINGS: The vein graft to the right coronary artery has 80% stenosis proximally. This was addressed with a 3.5 x 38 mm [place]. Result was 0% residual stenosis. OVERALL IMPRESSION: Successful percutaneous transluminal coronary angioplasty stent of the vein graft to the right coronary artery going from 80% initial stenosis to 0% residual. TRANSINT:[id number] Voice Confirmation ID: [id number] DOCUMENT ID: [id number] KEYSHAWN PEREZ MD at 1457 CC: [id number] DICTATION DATE: 10/08/18 1016 CORPORATE MANAGER: 10/08/18 1058 [facility] CLI 10/08/[address] [address]
== END 2018-10-08 14:10 ==
LOC: D.CATH 07:29
PROVIDERS: Internal Medicine Interventional Cardiology
DX: I25.119 Atherosclerotic heart disease of native coronary artery with unspecified angina pectoris (principal); I25.719 Atherosclerosis of autologous vein coronary artery bypass graft(s) with unspecified angina pectoris; I10 Essential (primary) hypertension; E78.5 Hyperlipidemia, unspecified; Z01.812 Encounter for preprocedural laboratory examination

== ENCOUNTER 2018-10-28 08:17 | Outpatient (CLI) | payer MEDICARE, BC ==
[~2018-10-28] VITALS: Ht 185.4 cm; Wt 90.0 kg
[2018-10-28 10:05] VITALS: BP 127/69; Ht 185.4 cm; Wt 90.0 kg
== END 2018-10-28 15:35 | disposition home or self-care (01) ==
LOC: D.OPS 08:17
DX: D64.9 Anemia, unspecified (principal); Z01.812 Encounter for preprocedural laboratory examination